=== PATIENT | female | born 1985 | race African-American/Black ===

== ENCOUNTER 2018-07-05 13:18 | Emergency (ER) | payer MEDICAID, OTHER ==
[~2018-07-05] VITALS: Ht 165.1 cm; Wt 59.0 kg
[2018-07-05 14:25] VITALS: BP 110/80
== END 2018-07-05 14:27 | disposition left against medical advice (07) ==
LOC: EDBD 13:18 → ER 13:32
DX: R40.4 Transient alteration of awareness (principal); Z53.21 Procedure and treatment not carried out due to patient leaving prior to being seen by health care provider